=== PATIENT | female | born 1945 | race Caucasian/White ===

== ENCOUNTER 2017-04-08 20:53 | Emergency (ER) | payer MEDICARE | END 2017-04-08 23:15 | disposition left against medical advice (07) | LOC: D.ER 20:53 | DX: M54.6 Pain in thoracic spine (principal) ==

== ENCOUNTER 2017-06-15 09:50 | Emergency (ER) | payer MEDICARE ==
[2017-06-15 11:08] LABS: BASOPHILS 0.6 % (0-2); EOSINOPHILS 3.9 % (0-7); HEMATOCRIT 36.8 % (36.0-48.0); HEMOGLOBIN 12.5 g/dL (12-16); IMMATURE GRANULOCYTES 0.2 % (0-5); LYMPHOCYTES 23.7 % (15-50); MCV 88.2 fL (80.0-100.0); MEAN PLATELET VOLUME 8.4 fL (7.4-10.4); MONOCYTES 8.5 % (2-11); NEUTROPHILS 63.1 % (40-80); PLATELET COUNT 275 10x3/uL (130-400); RBC 4.17 10x6/uL (4.00-5.40); RDW 13.7 % (11.5-14.5); WBC 5.2 10x3/uL (4.8-10.8)
[2017-06-15 11:23] LABS: ALBUMIN 3.6 g/dL (3.4-5.0); ANION GAP 10.7 mmol/L (8-16); BILIRUBIN - TOTAL 0.8 mg/dL (0.2-1.3); CALCIUM 9.3 mg/dL (8.5-10.1); CARBON DIOXIDE 30.1 mmol/L (21.0-32.0); CREATININE - SERUM 1.2 mg/dL (0.6-1.3)
[2017-06-15 11:25] LABS: POTASSIUM - SERUM 2.8 mmol/L (3.5-5.1)
[2017-06-15 12:09] LABS: ERYTHROCYTE SEDIMENTATION RATE 53 mm/hr (0-30)
== END 2017-06-15 13:55 | disposition home or self-care (01) ==
LOC: D.ER 09:50
PROVIDERS: Physician Assistant
DX: R51 Headache (principal); E86.0 Dehydration; E87.6 Hypokalemia

== ENCOUNTER 2017-06-15 14:16 | Emergency (ER) | payer MEDICARE | END 2017-06-15 14:25 | disposition left against medical advice (07) | LOC: D.ER 14:16 | DX: Z02.9 Encounter for administrative examinations, unspecified (principal) ==

== ENCOUNTER → 2017-12-05 12:13 | Outpatient (CLI) | payer OTHER | END | disposition home or self-care (01) | LOC: D.RAD 12:13 | DX: M54.5 Low back pain (principal) ==

== ENCOUNTER → 2017-12-18 12:28 | Outpatient (CLI) | payer OTHER | END | disposition home or self-care (01) | LOC: D.RAD 12:28 | DX: M54.5 Low back pain (principal) ==

== ENCOUNTER → 2018-02-14 15:38 | Outpatient (CLI) | payer OTHER | END | disposition home or self-care (01) | LOC: D.RAD 15:30 | DX: Z09 Encounter for follow-up examination after completed treatment for conditions other than malignant neoplasm (principal) ==

== ENCOUNTER → 2018-02-20 09:51 | Outpatient (CLI) | payer OTHER | END | disposition home or self-care (01) | LOC: D.CT 09:51 | DX: D64.9 Anemia, unspecified (principal); R63.4 Abnormal weight loss ==

== ENCOUNTER → 2018-06-17 15:50 | Outpatient (CLI) | payer OTHER | END | disposition home or self-care (01) | LOC: D.MAMMO 08:15 | DX: Z12.31 Encounter for screening mammogram for malignant neoplasm of breast (principal) ==

== ENCOUNTER 2019-03-04 05:15 | Day surgery (SDC) | payer OTHER ==
[2019-03-03 10:40] LABS: HEMATOCRIT 37.7 % (36.0-48.0); HEMOGLOBIN 12.8 g/dL (12-16); MCH 30.4 pg (26.0-34.0); MCV 89.5 fL (80.0-100.0); MEAN PLATELET VOLUME 8.3 fL (7.4-10.4); RBC 4.21 10x6/uL (4.00-5.40); WBC 4.4 10x3/uL (4.8-10.8)
[~2019-03-04] VITALS: Ht 160 cm; Wt 52.2 kg
--- NOTE | ~2019-03-04 | OP ---
PATIENT NAME: MEREDITH DOZIER MEDICAL RECORD: [id number] :45 LOCATION:D.OPS ADMISSION DATE: SURGEON: LAWSON NESBITT DPM DATE OF OPERATION: 03/04/2019 PREOPERATIVE DIAGNOSES: 1. HAV, left foot. 2. Instability, left first met cuneiform joint. POSTOPERATIVE DIAGNOSES: 1. HAV, left foot. 2. Instability, left first met cuneiform joint. PROCEDURES: 1. Way bunionectomy, left foot. 2. First met cuneiform joint fusion, left foot. ANESTHESIA: Local with general anesthesia. HEMOSTASIS: Left thigh tourniquet at 350 mmHg. PREOPERATIVE DETAILS: The patient was taken to the OR and placed on the operating table in a supine position. This was followed by induction of general anesthesia and infiltration of local anesthetic. Then, 20 cc of 1:1 mix of lidocaine and Marcaine plain were used around the first ray of the left foot. The left extremity was then prepped and draped in the usual aseptic technique followed by exsanguination of extremity and inflation of the tourniquet. PROCEDURE #1: Way bunionectomy, left foot: A 15-blade was used to create an incision from the dorsal aspect of the medial cuneiform distally to the base of the proximal phalanx of the hallux. The incision was deepened down through subcutaneous tissue being sure to avoid all vital structures. Dissection was carried down to the first MPJ where an inverted L capsulotomy was performed. The medial capsular flap was reflected and the head of the first metatarsal was delivered. A sagittal saw was used to reflect the medial eminence. Attention was then directed to the first interspace where a lateral release was performed. Good clinical reduction of lateral contracture was verified. PROCEDURE #2: First met cuneiform joint fusion, left foot. The incision as described above was utilized to dissect down to the first met cuneiform joint. Sagittal saw was used to resect the joint. Temporary fixation was then utilized, noting excellent alignment. A 5-hole plate with one screw crossing the fusion site was then placed on the dorsal aspect of the medial cuneiform and the dorsal aspect of the first metatarsal. Excellent alignment was noted following placement of the plate. C-arm was used to verify good screw placement as well as alignment of the first ray. The wound was flushed. A 2-0 Vicryl was then used to close the deep tissue as well as the first MPJ capsule, 4-0 Rapide was then used to reapproximate the subcutaneous tissue and the skin was then closed with 4-0 Rapide in a subcuticular technique followed by Dermabond. Adaptic, 4 x 4 and Conform were used to dress the wound followed by application of a modified Hart compression dressing. The tourniquet was deflated. POSTOPERATIVE DETAILS: The patient tolerated the procedure well and left the OR with vital signs stable and vascular status at preoperative levels. The patient was transported to recovery per anesthesia in stable condition. OPERATIVE REPORT [id number] MEREDITH DOZIER PAOLO TRANSINT:[id number] Voice Confirmation ID: [id number] DOCUMENT ID: [id number] LAWSON NESBITT DPM CC: [id number] DICTATION DATE: 03/04/19824 BATCH BLENDER: 03/04/19 1103 [facility] [place] 03/04/[address] [address]
[~2019-03-04 05:15] MED LIST: ASPIRIN EC81 M1 PO; OMEPRAZOLE20 M1 PO; ULTRAM50 MG PO; ZANAFLEX4 MG PO
[2019-03-04] MEDS ORDERED: HYDROCODON-ACE1 EA10 PO (05:51)
[2019-03-04 05:57] VITALS: BP 163/87; Ht 160 cm; Wt 52.2 kg
== END 2019-03-04 10:55 | disposition home or self-care (01) ==
LOC: D.OPS 05:15 → D.PAN 07:00 → D.OPS 10:55
PROVIDERS: Anesthesiology; ATTEND Podiatrist
DX: M20.12 Hallux valgus (acquired), left foot (principal); M25.375 Other instability, left foot; Z01.812 Encounter for preprocedural laboratory examination

== ENCOUNTER 2020-06-29 13:12 | Inpatient (IN) | payer OTHER ==
[~2020-06-29] VITALS: Ht 160 cm; Wt 63.5 kg
[~2020-06-29 13:12] MED LIST changes: +HYDROCODON-ACE1 EA10 PO
[2020-06-29 13:54] LABS: BASOPHILS 0.3 % (0-2); HEMATOCRIT 40.7 % (36.0-48.0); HEMOGLOBIN 13.9 g/dL (12-16); IMMATURE GRANULOCYTES 0.3 % (0-5); LYMPHOCYTES 21.7 % (15-50); MCH 29.3 pg (26.0-34.0); MCHC 34.2 g/dL (31.0-37.0); MCV 85.7 fL (80.0-100.0); MEAN PLATELET VOLUME 8.9 fL (7.4-10.4); MONOCYTES 11.4 % (2-11); NEUTROPHILS 65.3 % (40-80); PLATELET COUNT 223 10x3/uL (130-400); RBC 4.75 10x6/uL (4.00-5.40); RDW 13.7 % (11.5-14.5); WBC 3.9 10x3/uL (4.8-10.8)
[2020-06-29 14:22] VITALS: BP 114/63
[2020-06-29 15:23] VITALS: BP 118/76
[2020-06-29 15:28] LABS: ALBUMIN 3.1 g/dL (3.4-5.0); BILIRUBIN - TOTAL 1.43 mg/dL (0.2-1.3); CALCIUM 9.2 mg/dL (8.5-10.1); CARBON DIOXIDE 24.4 mmol/L (21.0-32.0); CREATININE - SERUM 1.2 mg/dL (0.6-1.3); PROTEIN - SERUM 7.3 g/dL (6.4-8.2)
[2020-06-29 15:32] LABS: POTASSIUM - SERUM 2.4 mmol/L (3.5-5.1)
[2020-06-29 16:24] VITALS: BP 115/56
[2020-06-29 17:25] VITALS: BP 108/52
[2020-06-29 18:19] LABS: UDS - AMPHET NEGATIVE QUAL (NEGATIVE); UDS - BARB NEGATIVE QUAL (NEGATIVE); UDS - BENZO NEGATIVE QUAL (NEGATIVE); UDS - COCAINE NEGATIVE QUAL (NEGATIVE); UDS - OPIATE NEGATIVE QUAL (NEGATIVE); UDS - PCP NEGATIVE QUAL (NEGATIVE); UDS - THC NEGATIVE QUAL (NEGATIVE)
[2020-06-29 18:20] LABS: BACTERIA MANY /hpf (NEGATIVE); BILIRUBIN NEGATIVE (NEGATIVE); EPITHELIAL CELLS OCC /hpf (0-5); GLUCOSE NEGATIVE (NEGATIVE); KETONE LARGE mg/dL (NEGATIVE); NITRITE POSITIVE (NEGATIVE); RED CELLS - URINE OCC /hpf (0-5); UROBILINOGEN NORMAL (NORMAL); WHITE CELLS - URINE OCC /hpf (NEGATIVE)
[2020-06-29 18:25] VITALS: BP 139/61
--- NOTE | 2020-06-29 19:10 | NUR ---
REPORT TO JON VIVAR
--- NOTE | 2020-06-29 20:22 | NUR ---
PT GIVEN BLANKET AND HEAD OF BED ADJUSTED TO LEVEL OF COMFORT. DENIES ANY FURTHER NEEDS AT THIS TIME. CALL LIGHT WITHIN REACH WILL CONTINUE TO MONITOR.
--- NOTE | 2020-06-29 21:20 | NUR ---
REPORT CALLED TO TRAMAINE, ROOM DIRTY AT THIS TIME. WILL CALL WHEN CLEAN.
--- NOTE | 2020-06-29 22:00 | NUR ---
RECEIVED PT FROM ER VIA STRETCHER. PT MOVED SELF OVER TO BED. RATES PAIN IN BLE 1 ON PAIN SCALE. ALERT AND ORIENTED X4 BUT CONFUSED. FORGETFUL. RESP EVEN AND NONLABORED. BANDAID NOTED TO LT EYEBROW COVERING SUTURES FROM LACERATION RESULT OF A FALL TODAY. GEN WEAKNESS NOTED. NS @ 100 MLHR INFUSING IN RT FOREARM. BRUISE NOTED TO RT ANKLE. V/S STABLE. CHARISMA ALARM ON FOR PT SAFETY. SR ELEVATED X2. CL IN REACH. NO DISTRESS. UNABLE TO RECALL HOME MEDS.
[2020-06-29 23:06] VITALS: BP 151/82; BMI 24.8
[2020-06-29 23:11] LABS: APTT 29.9 SECONDS (22.8-39.4); INR 1.35 (0.85-1.17); PROTIME 16.6 SECONDS (11.6-15.0)
[2020-06-29 23:31] LABS: CKMB 1.1 U/L (0.0-3.6); CREATINE KINASE 67 UL (21-215); MAGNESIUM - SERUM 1.9 mg/dL (1.8-2.4); TROPONIN-I 0.017 ng/mL (0.000-0.060)
[2020-06-30] VITALS: BP 151/82
--- NOTE | 2020-06-30 02:00 | NUR ---
ASSISTED ONTO BEDPAN. URINE SENT TO LAB FOR CULTURE.
[2020-06-30 04:00] VITALS: BP 108/56
[2020-06-30 05:56] LABS: BASOPHILS 0.3 % (0-2); EOSINOPHILS 1.8 % (0-7); HEMATOCRIT 34.5 % (36.0-48.0); HEMOGLOBIN 11.6 g/dL (12-16); IMMATURE GRANULOCYTES 0.3 % (0-5); MCH 28.9 pg (26.0-34.0); MCHC 33.6 g/dL (31.0-37.0); MCV 85.8 fL (80.0-100.0); MEAN PLATELET VOLUME 8.9 fL (7.4-10.4); MONOCYTES 8.5 % (2-11); NEUTROPHILS 66.1 % (40-80); PLATELET COUNT 226 10x3/uL (130-400); RBC 4.02 10x6/uL (4.00-5.40); RDW 13.8 % (11.5-14.5); WBC 3.9 10x3/uL (4.8-10.8)
[2020-06-30 06:27] LABS: ALBUMIN 2.4 g/dL (3.4-5.0); ALKALINE PHOSPHATASE 58 U/L (30-120); BILIRUBIN - TOTAL 0.95 mg/dL (0.2-1.3); CALCIUM 7.2 mg/dL (8.5-10.1); CARBON DIOXIDE 21.5 mmol/L (21.0-32.0); CHLORIDE - SERUM 99 mmol/L (98-107); CKMB 1.2 U/L (0.0-3.6); CREATINE KINASE 76 UL (21-215); MAGNESIUM - SERUM 1.8 mg/dL (1.8-2.4); SODIUM 137 mmol/L (136-145); eGFR NON AFRICAN AMERICAN 57 mL/min (90-120)
[2020-06-30 06:32] LABS: ALT (SGPT) 16 U/L (10-68); CALC OSMOLALITY 270 mosm/kg (275-300); PROTEIN - SERUM 5.3 g/dL (6.4-8.2); TROPONIN-I < 0.017 ng/mL (0.000-0.060); UREA NITROGEN 10 mg/dL (7-18)
[2020-06-30 06:33] LABS: GLUCOSE 55 mg/dL (74-106); POTASSIUM - SERUM 2.9 mmol/L (3.5-5.1)
[2020-06-30 09:36] VITALS: BP 104/45
[2020-06-30 12:51] VITALS: BP 101/42
[2020-06-30 13:10] LABS: CKMB 1.1 U/L (0.0-3.6); CREATINE KINASE 81 UL (21-215); TROPONIN-I < 0.017 ng/mL (0.000-0.060)
[2020-06-30 13:33] VITALS: Ht 160 cm; Wt 63.5 kg
[2020-06-30 14:22] LABS: CHOL - HDL RATIO 4.5 ratio (2.3-4.1); LDL-HDL RATIO 2.9 ratio (1.5-3.5)
[2020-06-30 16:15] LABS: CKMB 1.3 U/L (0.0-3.6); CREATINE KINASE 90 UL (21-215)
[2020-06-30 16:16] LABS: TROPONIN-I < 0.017 ng/mL (0.000-0.060)
[2020-06-30 17:53] VITALS: BP 134/60
[2020-06-30 20:00] VITALS: BP 119/58
[2020-07-01] VITALS: BP 101/50
[2020-07-01 04:00] VITALS: BP 127/60
[2020-07-01 04:05] LABS: BASOPHILS 0.3 % (0-2); HEMATOCRIT 31.5 % (36.0-48.0); HEMOGLOBIN 10.6 g/dL (12-16); IMMATURE GRANULOCYTES 0.3 % (0-5); MCH 28.2 pg (26.0-34.0); MCHC 33.7 g/dL (31.0-37.0); MEAN PLATELET VOLUME 8.7 fL (7.4-10.4); MONOCYTES 10.4 % (2-11); PLATELET COUNT 202 10x3/uL (130-400); RBC 3.76 10x6/uL (4.00-5.40); RDW 13.7 % (11.5-14.5); WBC 3.6 10x3/uL (4.8-10.8)
--- NOTE | 2020-07-01 04:09 | NUR ---
ASSESSED AT THE BEGINNING OF THE SHIFT. PT IS ALERT AND CONFUSED. WHEN FIRST SEEN SHE HAD PULLED OUT HER IV. IT WAS RESTARTED TO GIVE HER ANTIBOTIC BUT SHORTLY AFTER SHE PULLED IT OUT AGAIN. SHE HAS BEEN IMPOSSIBLE TO KEEP TELEMETRY ON AND IT WAS RETURNED TO MONITORS. IT WAS A PRYOR TO GET ONE EKG DONE. SHE HAS REMAINED ASLEEP SINCE ABOUT MIDNIGHT BUT IS AWAKE NOW GETTING LAB DRAWN.
[2020-07-01 04:14] LABS: MCV 83.8 fL (80.0-100.0)
[2020-07-01 06:07] LABS: ALKALINE PHOSPHATASE 58 U/L (30-120); ALT (SGPT) 13 U/L (10-68); BILIRUBIN - TOTAL 0.68 mg/dL (0.2-1.3); CALCIUM 7.1 mg/dL (8.5-10.1); CARBON DIOXIDE 25.2 mmol/L (21.0-32.0); CHLORIDE - SERUM 101 mmol/L (98-107); CREATINE KINASE 79 UL (21-215); CREATININE - SERUM 1.1 mg/dL (0.6-1.3); MAGNESIUM - SERUM 1.9 mg/dL (1.8-2.4); PROTEIN - SERUM 5.1 g/dL (6.4-8.2); SODIUM 135 mmol/L (136-145); TROPONIN-I < 0.017 ng/mL (0.000-0.060); UREA NITROGEN 8 mg/dL (7-18); eGFR NON AFRICAN AMERICAN 51 mL/min (90-120)
[2020-07-01 07:06] LABS: CALC OSMOLALITY 268 mosm/kg (275-300); GLUCOSE 116 mg/dL (74-106)
[2020-07-01 07:07] LABS: POTASSIUM - SERUM 2.4 mmol/L (3.5-5.1)
--- NOTE | 2020-07-01 07:43 | NUR ---
PT GOT UP AT 0600 AND STARTED TELLING STAFF THAT SHE WAS GOING HOME. WHEN QUESTIONED ABOUT WHERE SHE WAS GOING AND HOW SHE WAS LEAVING WE WERE TOLD IT WAS NONE OF OUR BUSINESS. AFTER CALLING THE RIG SUPERINTENDENT AND TRYING TO REASON WITH HER WE FINALLY LET HER SIGN THE AMA FORM. SHE THEN WALKED OFF. WE WERE TOLD DR WEAVER WAS BRAID MAKER BY THE ANSWERING SERVICE BUT THE MD DID NOT RETURN THE CALL.
== END 2020-07-01 06:45 | disposition left against medical advice (07) | DRG 312 ==
LOC: D.ER 13:12 → D.MS 20:44
PROVIDERS: Family Medicine; ADMIT Family Medicine; ATTEND Family Medicine
PROC: 0HQ1XZZ Repair Face Skin, External Approach (ICD-10-PCS; principal; 2020-06-29)
DX: R55 Syncope and collapse (principal); G93.41 Metabolic encephalopathy; N39.0 Urinary tract infection, site not specified; E87.1 Hypo-osmolality and hyponatremia; S01.112A Laceration without foreign body of left eyelid and periocular area, initial encounter; W19.XXXA Unspecified fall, initial encounter; E87.6 Hypokalemia; E78.5 Hyperlipidemia, unspecified; E03.9 Hypothyroidism, unspecified; K21.9 Gastro-esophageal reflux disease without esophagitis; R63.4 Abnormal weight loss; M48.00 Spinal stenosis, site unspecified; M21.619 Bunion of unspecified foot; M85.80 Other specified disorders of bone density and structure, unspecified site; G89.29 Other chronic pain

== ENCOUNTER 2020-07-05 17:31 | Inpatient (IN) | payer OTHER ==
[~2020-07-05] VITALS: Ht 160 cm; Wt 49.2 kg
[2020-07-05 18:02] LABS: BASOPHILS 0.3 % (0-2); EOSINOPHILS 1.7 % (0-7); HEMATOCRIT 35.7 % (36.0-48.0); HEMOGLOBIN 12.2 g/dL (12-16); IMMATURE GRANULOCYTES 0.3 % (0-5); LYMPHOCYTES 34.5 % (15-50); MCH 29.2 pg (26.0-34.0); MCHC 34.2 g/dL (31.0-37.0); MCV 85.4 fL (80.0-100.0); MEAN PLATELET VOLUME 8.8 fL (7.4-10.4); MONOCYTES 10.4 % (2-11); NEUTROPHILS 52.8 % (40-80); PLATELET COUNT 200 10x3/uL (130-400); RBC 4.18 10x6/uL (4.00-5.40); RDW 14.3 % (11.5-14.5); WBC 3.5 10x3/uL (4.8-10.8)
[2020-07-05 18:13] LABS: APTT 27.5 SECONDS (22.8-39.4); INR 1.17 (0.85-1.17); PROTIME 14.9 SECONDS (11.6-15.0)
[2020-07-05 18:37] LABS: ALBUMIN 2.9 g/dL (3.4-5.0); ALKALINE PHOSPHATASE 71 U/L (30-120); ALT (SGPT) 22 U/L (10-68); BILIRUBIN - TOTAL 1.66 mg/dL (0.2-1.3); CALC OSMOLALITY 276 mosm/kg (275-300); CALCIUM 8.2 mg/dL (8.5-10.1); CARBON DIOXIDE 23.3 mmol/L (21.0-32.0); CHLORIDE - SERUM 101 mmol/L (98-107); CKMB 0.6 U/L (0.0-3.6); CREATINE KINASE 76 UL (21-215); CREATININE - SERUM 1.2 mg/dL (0.6-1.3); GLUCOSE 77 mg/dL (74-106); MAGNESIUM - SERUM 1.5 mg/dL (1.8-2.4); PROTEIN - SERUM 6.1 g/dL (6.4-8.2); SODIUM 140 mmol/L (136-145); THYROID STIMULATING HORMONE 11.44 uIU/mL (0.36-3.74); TROPONIN-I 0.022 ng/mL (0.000-0.060); UREA NITROGEN 9 mg/dL (7-18); eGFR NON AFRICAN AMERICAN 46 mL/min (90-120)
[2020-07-05 18:42] LABS: POTASSIUM - SERUM 2.6 mmol/L (3.5-5.1)
--- NOTE | 2020-07-05 18:43 | NUR ---
CC LAB REC'D KCL 2.6 DR ROSALES NOTIFIED
[2020-07-05 18:44] LABS: BILIRUBIN NEGATIVE (NEGATIVE); KETONE NEGATIVE (NEGATIVE); NITRITE NEGATIVE (NEGATIVE); UROBILINOGEN NORMAL (NORMAL)
[2020-07-05 18:49] LABS: UDS - AMPHET NEGATIVE QUAL (NEGATIVE); UDS - BARB NEGATIVE QUAL (NEGATIVE); UDS - BENZO NEGATIVE QUAL (NEGATIVE); UDS - COCAINE NEGATIVE QUAL (NEGATIVE); UDS - OPIATE NEGATIVE QUAL (NEGATIVE); UDS - PCP NEGATIVE QUAL (NEGATIVE); UDS - THC NEGATIVE QUAL (NEGATIVE)
[2020-07-06 00:32] VITALS: BP 158/82; BMI 17.1
[2020-07-06 00:53] VITALS: BP 158/82
--- NOTE | 2020-07-06 01:29 | NUR ---
NEW ADMIT TO DOCTOR VIDALES FROM [facility] EM[facility]ENCY [facility]PARTMENT RELATED TO ALTERED MENTAL STATUS. PATIENT RECIEVED VIA WHEELCHAIR. ORIENTED TO PERSON AND PLACE ONLY. UNSTEADY. CHARISMA ALARM ON BED. STATES CODE STATUS OF DNR. COOPERATIVE WITH ADMIT ASSESSMENT. RESTING QUIETLY IN BED AT THIS TIME.
[2020-07-06 08:06] LABS: CHOL - HDL RATIO 3.6 ratio (2.3-4.1); LDL-HDL RATIO 2.2 ratio (1.5-3.5)
[2020-07-06 08:36] VITALS: BP 121/55
--- NOTE | 2020-07-06 09:20 | NUR ---
pt laying in bed eating breakfast at this time. pt is alert to self only. pt did know she was in the hospital but did know which one. pt can make some needs known. redirect and reorient as needed. pt was calm and cooperative with staff. pt is awaiting covid results. bed alarm in place and active. no behaviors noted. will cont plan of care.
--- NOTE | 2020-07-06 12:36 | NUR ---
REQUESTED MEDICATION LIST FROM DR. PACKER OFFICE. AWAITING FAX.
[2020-07-06 13:58] VITALS: Ht 160 cm; Wt 49.2 kg
[2020-07-06 20:27] VITALS: BP 125/61
--- NOTE | 2020-07-06 20:30 | NUR ---
RECEIVED PATIENT IN DAYROOM, CONFUSED, LITTLE GUARDED. ASKING FOR HER SHOES, COMPLIANT WITH MEDS. SHE LOOKS AT YOU AND SMILES WHEN YOU ARE TALKING TO HER WITH A SLIGHT BLANK STARE. WILL FOLLOW POC
[2020-07-07 07:15] LABS: RAPID PLASMA REAGIN Non Reactive (Non Reactive)
[2020-07-07 11:19] VITALS: BP 98/49
--- NOTE | 2020-07-07 13:19 | PSY ---
PATIENT NAME:MEREDITH DOZIER MEDICAL RECORD: [id number] : 45 LOCATION:VANDANA Huynh0 ADMISSION DATE: 07/05/20 ACCOUNT: [id number] PSYCHIATRIC EVALUATION DATE OF EVALUATION: 07/06/20 IDENTIFYING DATA: The patient is 75 years old and she is admitted to the hospital on a voluntary basis. CHIEF COMPLAINT: Confusion. HISTORY OF PRESENT ILLNESS: The patient's situation is very sad. She has dementia. Apparently, she has had it for a while, although I do not have details. She is not a very good historian. She called 911 because she could not wake her up. It turns out the check processor says he has been for 4 days. Now, she does not remember that he has . Apparently, she was alone in the house with him for 4 days and he had been decomposing. She is very confused. At this point, we do not have any family or other sources of information, simply a confused woman who is in need of evaluation and assistance. PAST MEDICAL HISTORY: Significant for hypothyroidism. PAST PSYCHIATRIC HISTORY: Denied by the patient. FAMILY HISTORY: Significant for both parents having cancer. ALLERGIES: PENICILLIN. CURRENT MEDICATIONS: Include Zanaflex and aspirin. SOCIAL HISTORY: The patient has no history of drug or alcohol abuse. She is and apparently smoked cigarettes in her youth, but has not for a long time. MENTAL STATUS EXAMINATION: The patient is awake, alert and oriented to person and place, but not to time or situation. Her mood is flat. Her affect is appropriate. Thought processes are goal directed. Memory, concentration, and abstraction abilities are impaired. She denies that she would seek to harm herself or others. She denies psychotic symptoms. ASSESSMENT: AXIS I: Advanced major neurocognitive disorder. AXIS II: None. AXIS III: Hypothyroidism, hyperlipidemia. AXIS IV: Moderate. AXIS V: Global assessment of functioning is 30. PLAN: At this time, the patient is admitted to the hospital for a comprehensive medical, psychological, and social evaluation. She will be treated with both mood stabilizing and memory enhancing medications. Her long-term prognosis is guarded. TRANSINT:[id number] Voice Confirmation ID: [id number] DOCUMENT ID: [id number] SHARRON VIDALES MD at 9802 CC: [id number] DICTATION DATE: 07/06/20 1635 CHILD CARE CENTRE MANAGER: 07/06/20 1707 ADM IN [place] [id number] [place] [address]
--- NOTE | 2020-07-07 13:54 | NUR ---
PT SITTING IN CHAIR. CALM AND COOPERATIVE WITH STAFF. NO ACUTE DISTRESS NOTED. PT IS COMPLIANT WITH MEDS, VITALS AND ASSESSMENTS. CAN MAKE NEEDS KNOWN. CONFUSION NOTED. ALERT TO SELF ONLY. REDIRECT AND REORIENT NEEDED. PT CAN AMBULATE WITH ASSISTANCE. PT SPEAKS WHEN SPOKEN TOO. ENCOURAGE INTERACTION. WILL CONT PLAN OF CARE.
[2020-07-07 20:09] VITALS: BP 133/50
--- NOTE | 2020-07-08 06:47 | NUR ---
PT. RESTED THROUGH THE NIGHT, COMPLIANT WITH MEDS, CONFUSED, NO ISSUES
--- NOTE | 2020-07-08 10:29 | NUR ---
The patient is awake, she has poor insight into her situation, she has poor short term memory recall. She said she is here because her and she has to get back home to clean her house. She says she has things she needs to do. She ambulates independently. She is calm, but she keeps asking "Well, when can I go home." Explained to her "It will be a few days." Provide prescribed meds. The patient is compliant with meds. Continue POC.
--- NOTE | 2020-07-08 12:39 | NUR ---
Ishmael from [facility] called and wondered if the patient is able to sign an authorization for cremation form. Called Josesito and she called Leena at [facility]. Leena from [facility] called and she said "At this time the patient is not a legal guardian and she has not been deemed incompetent, she is her legal person." Spoke to the patient about her spouses and the home will need her to sign a cremation authorization. She said "Yes, my and I discussed cremation so yes, I'll sign it. Called Ishmael from [facility], and let him know she can sign the paperwork. Ishmael also said he will bring another form that lets him know the , parents names etc. Explained to Ishmael that we can try, but I was unsure as to how much information that the patient would be able to provide. He said ok and that he will come by later this afternoon.
--- NOTE | 2020-07-08 12:57 | PN ---
PATIENT:MEREDITH DOZIER [facility] MEDICAL RECORD: [id number] LOCATION:ColinSkinnyMICHAEL Solo112 ADMISSION DATE: 07/05/20 PROGRESS NOTE DATE OF SERVICE: 07/07/2020 SUBJECTIVE: The patient's case was discussed with staff. She has no new complaint. OBJECTIVE: The patient is impaired cognitively, but denying that she would seek to harm herself. ASSESSMENT: Dementia. PLAN: Current medications have been reviewed. She is receiving Megace to assist with her poor appetite. She clearly is going to require significant supervision. TRANSINT:[id number] Voice Confirmation ID: [id number] DOCUMENT ID: [id number] SHARRON VIDALES MD at 1257 CC: [id number] DICTATION DATE: 07/07/20 165 WOODEN SHADE HARDWARE INSTALLER: 07/08/20 0213 ADM IN [place] [id number] [place] [address]
[2020-07-08 13:06] LABS: CALCIUM 8.1 mg/dL (8.5-10.1); CARBON DIOXIDE 21.8 mmol/L (21.0-32.0); CREATININE - SERUM 1.2 mg/dL (0.6-1.3); POTASSIUM - SERUM 3.8 mmol/L (3.5-5.1)
--- NOTE | 2020-07-08 13:56 | NUR ---
Nutrition Follow-up: Overall PO intake is poor. Noted Megace started; first dose given today. Diet: Regular, Ensure TID PO intake: 47% avg x 6 meals Wt: 96# (07/06) Labs noted: Na 135, Glu 118, A1C 5.7, Ca 8.1 Meds noted: Megace, Protonix -Encourage PO intake and honor food preferences. -Monitor wt. -RD following.
--- NOTE | 2020-07-08 14:42 | NUR ---
Ishmael from [facility] came and the patient filled out the cremation form and the certificate.
[2020-07-08 16:17] VITALS: BP 127/39
[2020-07-08 19:57] VITALS: BP 135/56
--- NOTE | 2020-07-08 20:39 | NUR ---
B.) PT IS ALERT AND ORIENTED TO SELF AND SITUATION. SHE IS RECEIVED IN THE DAYROOM. SHE IS OBSERVED SOCIALIZING WITH PEERS. SHE IS CALM AND COOPERATIVE AT THIS TIME. I.) PROVDIED PM MEDICATIONS PRESCRIBED. REDIRECT NEEDED. R.) COMPLIANT WITH ALL MEDICATIONS. EASY TO REDIRECT AT THIS TIME. P.) WILL CONTINUE TO MONITOR.
[2020-07-09 10:10] VITALS: BP 131/77
--- NOTE | 2020-07-09 10:16 | NUR ---
The patient is awake and she is pleasant, she is confused. She has poor short term memory recall. She has poor insight into her situation. She asks where she is and when she gets the answer of [facility] she asks where it is located. She says "Oh, ok." She is interacting with her peers and staff. She ambulates independently. She is not eating well, but she said "I just got my weight to where I want it, my clothes fit better." Provide prescribed meds. The patient is compliant with meds. Continue POC.
[2020-07-09 20:00] VITALS: BP 136/74
--- NOTE | 2020-07-09 20:53 | NUR ---
B.) PT IS ALERT AND ORIENTED TO SELF ONLY. SHE HAS POOR INSIGHT INTO HER SITUATION. SHE RELATES THAT SHE IS IN A HOTEL WITH FRIENDS. SHE IS ABLE TO AMBULATE WITHOUT ASSIST. I.) PROVIDED PM MEDICATIONS PRESCRIBED. REDIRECT NEEDED. R.) COMPLIANT WITH ALL MEDICATIONS. EASY TO REDIRECT. P.) WILL CONTINUE TO MONITOR.
[2020-07-10 09:09] VITALS: BP 139/76
--- NOTE | 2020-07-10 10:46 | NUR ---
RECEIVED IN HALLWAY OUTSIDE OF NURSES STATION. CALM AND COOPERATIVE WITH CARE AND ASSESSMENT. OLINDA SHE IS IN A REHAB C[facility] [place]. NO BEHAVIOR ISSUES. REDIRECT AND REORIENT NEEDED. PARTICIPATING IN GROUP AT THIS TIME. CONTINUE PLAN OF CARE.
--- NOTE | 2020-07-10 19:36 | NUR ---
RECEIVED IN DAYROOM. SITTING IN A CHAIR WITH PEERS AT HER SIDE. CALMA AND COOPERATIVE WITH CARE AND ASSESSMENT, CONFUSED. ENCOURAGE TO EXPRESS NEEDS. REDIRECT AND REOREINT NEEDED. CONTINUES TO SIT CALMLY IN DAYROOM. CONTINUE PLAN OF CARE.
[2020-07-10 20:00] VITALS: BP 134/60
[2020-07-11 08:53] VITALS: BP 103/63
--- NOTE | 2020-07-11 12:00 | NUR ---
RECEIVED IN HALLWAY OUTSIDE OF NURSES STATION. CALM AND COOPERATIVE WITH CARE AND ASSESSMENT. NO BEHAVIORS. REDIRECT AND REORIENT NEEDED. EATING AT THIS TIME. CONTINUE PLAN OF CARE.
--- NOTE | 2020-07-11 19:30 | NUR ---
RECEIVED IN DAYROOM. SITTING IN A CHAIR WITH PEERS AT HER SIDE. CALM AND COOPERATIVE WITH CARE AND ASSESSMENT.CONFUSED. REDIRECT AND REORIENT NEEDED. CONTINUES TO SIT CALMLY IN DAYROOM. CONTINUE PLAN OF CARE.
[2020-07-11 20:06] VITALS: BP 128/62
[2020-07-11 20:12] VITALS: BP 128/62
[2020-07-12 09:31] VITALS: BP 129/62
--- NOTE | 2020-07-12 09:50 | PN ---
PATIENT:MEREDITH DOZIER [facility] MEDICAL RECORD: [id number] LOCATION:VANDANA ShawSkinny112 ADMISSION DATE: 07/05/20 PROGRESS NOTE DATE OF SERVICE: 07/11/2020 SUBJECTIVE: The patient's case was discussed with staff. She has no new complaint. OBJECTIVE: The patient is partially oriented. She is calm and cooperative. She is eating reasonably well and sleeping well. ASSESSMENT: Alzheimer's disease. PLAN: The patient needs 42-evdr-g-day supervision. At this point, it looks as though only adult protective services is going to be able to intervene since she has no close family or relatives that are willing to assist or more fairly able to assist. TRANSINT:[id number] Voice Confirmation ID: [id number] DOCUMENT ID: [id number] SHARRON VIDALES MD at 0950 CC: [id number] DICTATION DATE: 07/11/20 1523 ELECTRICAL HARDWARE ENGINEER: 07/11/20 2228 ADM IN [place] [id number] [place] [id number]
--- NOTE | 2020-07-12 13:31 | NUR ---
RECEIVED IN HALLWAY OUTSIDE OF NURSES STATION. CALM AND COOPERATIVE WITH CARE AND ASSESSMENT. BELIEVES SHE IS IN A FACTORY ON THE [place] OF [facility] AND IS HERE TO GET INSURANCE. REDIRECT AND REORIENT NEEDED. IN GROUP AT THIS TIME. CONTINUE PLAN OF CARE.
--- NOTE | 2020-07-12 17:08 | NUR ---
DR. JADE PRESENT ROUNDING. NEW ORDER FOR DEEP TERMINAL CLEAN AND CONTACT ISOLATION FOR POSSIBLE BED BUGS. HS EVERETTE AND EVS NOTIFIED FOR DEEP TERMINAL CLEANING FOR PTS ROOM. NEW ORDERS NOTED.
[2020-07-12 20:43] VITALS: BP 132/58
--- NOTE | 2020-07-12 20:51 | NUR ---
RECIEVED IN DAYROOM. SITTING IN A CHAIR WITH PEERS AT HER SIDE. CALM AND COOPERATIVE WITH CARE AND ASSESSMENT. ENCOURAGE TO EXPRESS NEEDS. REDIRECT AND REORIENT NEEDED. CONTINUES TO SIT CALMLY IN DAYROOM. CONTINUE PLAN OF CARE.
[2020-07-13 09:10] VITALS: BP 138/79
--- NOTE | 2020-07-13 10:39 | NUR ---
SW MET WITH PT. PT HAS BEEN TEARFUL AND DISCUSSES HER HUSBANDS . SHE STATED SHE NEEDS TO GET BACK TO HER DOGS. SHE STATED SHE HAS A COMMUNITY THAT HELPS HER AND WILL SUPPORT HER IF SHE GOES HOME. PT WAS ORIENTED TO PERSON AND PLACE BUT STILL HAS LIMITED INSIGHT ABOUT SIGNS AND SYMPTOMS. PT CONTINUES TO BE LABILE DURING ASSESSMENT. PT DID STATE SHE THOUGHT SHE WAS IN A FACTORY WORKING DURING ASSESSMENT. TANI WILL CONTINUE TO WORK WITH APS TO FIND LEAST RESTRICTIVE LEVEL OF CARE THAT PROVIDES PT WITH SAFETY.
--- NOTE | 2020-07-13 12:00 | NUR ---
RECEIVED IN HALLWAY OUTSIDE OF NURSES STATION. CALM AND COOPERATIVE WITH CARE AND ASSESSMENT. CONFUSED. NO BEHAVIORS. REDIRECT AND REORIENT NEEDED. EATING AT THIS TIME. CONTINUE PLAN OF CARE.
--- NOTE | 2020-07-13 13:16 | NUR ---
Team Treatment Plan: COMMENTS: Patient has been eatin well for the past 9 meals. No constipation at this time. Patient has gained some weight since last week. DIET: Regluar diet SUPPLEMENT: Ensure with meals PO INTAKE: 82% avg for last 9 meals WEIGHT: 96 lbs on 07/06; 101 lbs on 07/10 BM: x 1 on 07/12 (no consistency noted) SIG LABS: No new labs since 07/08. Na-135(L), Ca-8.1(L) SIG MEDS: MEGACE, senokot, Zocor, Synthroid, Protonix RECOMENDATIONS: -Continue current diet as tolerated -Continue Ensure TID -Continue Appetite Stimulant RD to continue to follow and monitor patient DHS
--- NOTE | 2020-07-13 14:35 | PN ---
PATIENT:MEREDITH DOZIER [facility] MEDICAL RECORD: [id number] LOCATION:ROBERTAWai ColinSkinny112 ADMISSION DATE: 07/05/20 PROGRESS NOTE DATE OF SERVICE: 07/12/2020 SUBJECTIVE: The patient's case was discussed with staff. She has no new complaint. OBJECTIVE: The patient denies that she would seek to harm herself or others. She is partially oriented. Her mood is euthymic. ASSESSMENT: Dementia. PLAN: The patient's current medications have been reviewed. She is tolerating them well. I am going to increase the dose of her Lexapro to 10 mg daily. TRANSINT:[id number] Voice Confirmation ID: [id number] DOCUMENT ID: [id number] SHARRON VIDALES MD at 1435 CC: [id number] DICTATION DATE: 07/12/20 1523 ENGINEERING AND SCIENTIFIC PROGRAMMER: 07/12/20 2344 ADM IN [place] [id number] [place] [address]
[2020-07-13 20:37] VITALS: BP 129/59
--- NOTE | 2020-07-14 00:20 | NUR ---
B) Patient is alert and oriented to self, calm and cooperative, social with peers, I) Administered scheduled medications as ordered, monitored for safety R) Mediation compliant, pleasant and friendly P) Continue plan of care.
--- NOTE | 2020-07-14 07:56 | NUR ---
The patient is awake and alert, she is pleasant. She has poor short term memory recall and she has poor insight into her situation. She is calm. She ambulates, toilets, and feeds herself. Provide prescribed meds. The patient is compliant with meds. Continue POC.
[2020-07-14 09:22] VITALS: BP 127/65
--- NOTE | 2020-07-14 12:16 | PN ---
PATIENT:MEREDITH DOZIER [facility] MEDICAL RECORD: [id number] LOCATION:ColinSkinnyMICHAEL Solo112 ADMISSION DATE: 07/05/20 PROGRESS NOTE DATE OF SERVICE: 07/13/2020 SUBJECTIVE: The patient's case was discussed with staff. She has no new complaint. OBJECTIVE: The patient is not fully oriented. She has limited insight about her situation. She has not been aggressive. ASSESSMENT: Dementia. PLAN: Current medicines have been reviewed and will be maintained. She is going to have her Namenda increased to 10 mg twice daily. TRANSINT:[id number] Voice Confirmation ID: [id number] DOCUMENT ID: [id number] SHARRON VIDALES MD at 1216 CC: [id number] DICTATION DATE: 07/13/20 1459 MILL SET UP: 07/14/20 0008 ADM IN [facility] [address] [place] [address]
--- NOTE | 2020-07-14 17:05 | PN ---
PATIENT:MEREDITH DOZIER MEDICAL RECORD: [id number] LOCATION:VANDANA Solo112 ADMISSION DATE: 07/05/20 PROGRESS NOTE DATE OF SERVICE: 07/14/2020 SUBJECTIVE: The patient's case was discussed with staff. She has no new complaint. OBJECTIVE: The patient is cognitively impaired, but not disruptive. She wants to go home. She has very close neighbors who are willing to look in on her. ASSESSMENT: Dementia. PLAN: The patient is very insistent about this and after discussing it with the treatment team, it has been decided to allow her to try this. I am going to monitor her medications a little longer and would also like to get input from adult protective services. This is a very difficult decision, it is one of those where there really is not 1 clear cut definitive answer. From a purely utilitarian coldly objective standpoint, she should not be at home. But factoring in her autonomy, her wishes, the supportive friends who are to be equivalent of a family for her, I am in favor of letting her try it, even though there are risk. She understands those risks, even though she is demented. TRANSINT:[id number] Voice Confirmation ID: [id number] DOCUMENT ID: [id number] SHARRON VIDALES MD at 1705 CC: [id number] DICTATION DATE: 07/14/20 1228 ORDER PACKER: 07/14/20 1423 ADM IN [facility] [address] [place] [address]
[2020-07-14 20:32] VITALS: BP 131/63
--- NOTE | 2020-07-14 22:43 | NUR ---
RECEIVED PATIENT IN DAYROOM, SHE IS QUIET, CALM, PLEASANT, LITTLE GUARDED. SHE IS STAYING CLOSE TO A MALE RESIDENT AT THIS TIME. SHE HAS A "FIXATED" SMILE. SHE IS COMPLIANT WITH HER MEDS, NO ADVERSE REACTION NOTED TO MEDS, NO SIDE EFFECTS NOTED TO MEDS, SHE IS ABLE TO VOICE ALL NEEDS AND CONCERNS. WILL FOLLOW POC
[2020-07-15 08:52] VITALS: BP 121/65
--- NOTE | 2020-07-15 10:06 | NUR ---
The patient is awake, she is pleasant and has a smile at all times. She has poor short term memory recall and poor insight into her situation. She believes she has known some of the patients for a long time. She ambulates, toilets, and feeds herself independently. Provide prescribed meds, the patient is compliant with meds. Continue POC.
--- NOTE | 2020-07-15 19:25 | NUR ---
RECEIVED PATIENT IN DAYROOM LYING ON COUCH, PLEASANT BUT CONFUSED, SHE IS BEING "TOO CLOSE" WITH OUR MALE PATIENT AT TIMES AND HAS TO BE WATCHED CLOSELY, SHE HAS BEEN COMPLIANT WITH MEDS. CAN MAKE NEEDS KNOWN, WILL FOLLOW POC
[2020-07-15 20:00] VITALS: BP 127/61
[2020-07-16 09:12] VITALS: BP 122/86
--- NOTE | 2020-07-16 12:36 | NUR ---
RECEIVED THIS AM SITTING UP IN CHAIR AT NURSES STATION.PLEASANT.COOPERATIVE WITH STAFF AND MEDS.CONFUSED,HAS POOR SHORT TERM MEMORY.WILL CONTINUE WITH CURRENT PLAN OF CARE,MONIITOR FOR CHANGES AND SAFETY.
--- NOTE | 2020-07-16 19:23 | NUR ---
PATIENT SLID TO FLOOR WHILE WAITING ON VITAL SIGNS. COMPLIANING OF ARM PAIN. CALLED DR. WHEATLEY. ORDER RECEIVED TO X-RAY RIGHT FOREARM AND SHOULDER.
[2020-07-16 19:26] VITALS: BP 126/73
--- NOTE | 2020-07-16 19:53 | NUR ---
PATIENT BLOOD PRESSURE 102/55. METOPROLOL HELD.
--- NOTE | 2020-07-16 22:17 | NUR ---
REVIEWED PATIENT'S X-RAY AND SHE DOES HAVE A FRACTURE TO HER RIGHT UPPER HUMERUS. DR. WHEATLEY AND JAYLEEN NOTIFIED. RECEIVED ORDER FOR NORCO 5MG PO PRN EVERY FOUR HOURS AND ORTHO CONSULT AND TO PLACE ARM IN SLING FOR NOW. PATIENT HAS BEEN GIVEN TYLENOL EXTRA STRENGTH AND IS RESTING AT THIS TIME.
--- NOTE | 2020-07-17 02:07 | NUR ---
PATIENT RESTING AT THIS TIME. HOB ELEVATED FOR COMFORT AND ARM IN SLING. WILL CONTINUE TO MONITOR
[2020-07-17 09:28] VITALS: BP 131/64
--- NOTE | 2020-07-17 12:00 | NUR ---
RECEIVED IN HALLWAY OUTSIDE OF NURSES STATION. CALM AND COOPERATIVE WITH CARE AND ASSESSMENT. COMPLAINS OF PAIN IN RIGHT SHOULDER/ARM. NO BEHAVIORS. REDIRECT AND REORIENT NEEDED. EATING AT THIS TIME. CONTINUE PLAN OF CARE.
[2020-07-17 18:51] VITALS: BP 167/79
--- NOTE | 2020-07-17 19:10 | NUR ---
RECEIVED IN BEDROOM. RESTING IN BED WITH EYES CLOSED. RESPONDS TO VOICE. CALM AND COOPERATIVE WITH CARE AND ASSESSMENT. ENCOURAGE TO EXPRESS NEEDS. REDIRECT AND REOREINT NEEDED. CONTINUES TO REST QUIETLY IN BED. CONTINUE PLAN OF CARE.
[2020-07-18 08:34] VITALS: BP 137/65
[2020-07-18] MEDS ORDERED: Megace ES [CHEMO] PO (09:53)
[2020-07-18] MEDS ORDERED: LIDODERM 5 %1 PATCH TRANSDERM (09:53)
[2020-07-18] MEDS ORDERED: ZOCOR20 MG PO (09:53)
[2020-07-18] MEDS ORDERED: LEXAPRO10 MG PO (09:53)
[2020-07-18] MEDS ORDERED: LEVOTHYROXINE75 MCG PO (09:53)
[2020-07-18] MEDS ORDERED: NAMENDA5 MG PO (09:53)
[2020-07-18] MEDS ORDERED: Senokot TAB PO (09:53)
[2020-07-18] MEDS ORDERED: PROTONIX40 MG PO (09:53)
[2020-07-18] MEDS ORDERED: BUSPAR5 MG PO (09:53)
--- NOTE | 2020-07-18 13:41 | PN ---
PATIENT:MEREDITH DOZIER MEDICAL RECORD: [id number] LOCATION:[facility] ADMISSION DATE: 07/05/20 PROGRESS NOTE DATE OF SERVICE: 07/18/2020 SUBJECTIVE: The patient's case was discussed with staff. She has no new complaint. OBJECTIVE: The patient is having some complications related to the injury to her shoulder from Saturday night. Chief among these is an unusual amount of pain. The specialist involved is wanting to transfer her from the behavioral floor to the medical floor for management. ASSESSMENT: Dementia. PLAN: The patient has no symptoms that should represent a danger to herself or the others on the medical floor. She is not aggressive. She is not psychotic. Once management on the medical floor is complete, we would be happy to assist with either replacement or can certainly take her back on the behavioral unit if there are issues that need to be addressed. At this point, prior to the fall that she experienced over the weekend, she was clinically ready for discharge. The treatment team was focusing on the least restrictive environment that could meet her needs. TRANSINT:[id number] Voice Confirmation ID: [id number] DOCUMENT ID: [id number] SHARRON VIDALES MD at 1341 CC: [id number] DICTATION DATE: 07/18/20 0956 TALENT ACQUISITION OPERATIONS MANAGER: 07/18/20 1042 ADM IN [address] [id number] [place] [address]
--- NOTE | 2020-07-18 15:00 | NUR ---
RECEIVED IN HALLWAY OUTSIDE OF NURSES STATION. CALM AND COOPERATIVE WITH CARE AND ASSESSMENT. NO BEHAVIORS NOTED. REDIRECT AND REORIENT NEEDED. SITTING IN GROUP AT THIS TIME. CONTINUE PLAN OF CARE.
--- NOTE | 2020-07-18 19:30 | NUR ---
RECEIVED IN DAYROOM. SITTING IN A WHEELCHAIR. CALM AND COOPERATIVE WITH CARE AND ASSESSMENT. ENCOURAGE TO EXPRESS NEEDS. CONTINUES TO SIT QUIETLY IN DAYROOM. CONTINUE PLAN OF CARE.
[2020-07-18 19:39] VITALS: BP 171/68
[2020-07-19 09:30] VITALS: BP 146/75
--- NOTE | 2020-07-19 12:00 | NUR ---
RECEIVED IN HALLWAY OUTSIDE OF NURSES STATION. CALM AND COOPERATIVE WITH CARE AND ASSESSMENT. QUIET AND STAYS TO HERSELF. NO BEHAVIOR ISSUES. REDIRECT AND REORIENT NEEDED. EATING AT THIS TIME. CONTINUE PLAN OF CARE.
--- NOTE | 2020-07-19 16:49 | NUR ---
REPORT CALLED TO SU WEBB. ALL PAPERWORK SENT WITH PT AT TIME OF DISCHARGE.
--- NOTE | 2020-07-19 17:03 | NUR ---
PT DISCHARGED TO [facility]. ALL DISCHARGE PAPERWORK AND BELONGING GIVING TO CHARGE NURSE SU WEBB. NO S/SX OF DISTRESS NOTED.
--- NOTE | 2020-07-20 08:33 | PN ---
PATIENT:MEREDITH DOZIER PAOLO MEDICAL RECORD: [id number] LOCATION:[facility] ADMISSION DATE: 07/05/20 PROGRESS NOTE DATE OF SERVICE: 07/19/2020 SUBJECTIVE: The patient's case was discussed with staff. She has no new complaint. OBJECTIVE: The patient is still having a lot of discomfort with her shoulder. Cognitively, she is not any different. Behaviorally, she is not a direct risk. ASSESSMENT: Dementia. PLAN: The patient is going to be transferred to orthopedic surgery for a reduction of the fracture. I do not see evidence of acute dangerousness and if behaviors present, I would be happy to accept her back on the behavioral unit for additional treatment. TRANSINT:[id number] Voice Confirmation ID: [id number] DOCUMENT ID: [id number] SHARRON VIDALES MD at 0833 CC: [id number] DICTATION DATE: 07/19/20 1448 CIGAR HEAD HOLER: 07/20/20 0044 DIS IN 07/19/20 [address] [place] [address]
== END 2020-07-19 17:05 | disposition short-term general hospital (02) | DRG 884 ==
LOC: D.ER 17:31 → D.PSYCH 19:57
PROVIDERS: Family Medicine; ADMIT Psychiatry & Neurology Psychiatry; ATTEND Psychiatry & Neurology Psychiatry
DX: F03.91 Unspecified dementia, unspecified severity, with behavioral disturbance (principal); S42.211A Unspecified displaced fracture of surgical neck of right humerus, initial encounter for closed fracture; I10 Essential (primary) hypertension; E03.9 Hypothyroidism, unspecified; E78.5 Hyperlipidemia, unspecified; K21.9 Gastro-esophageal reflux disease without esophagitis; W19.XXXD Unspecified fall, subsequent encounter; Y92.009 Unspecified place in unspecified non-institutional (private) residence as the place of occurrence of the external cause; K59.00 Constipation, unspecified; M54.5 Low back pain; Y92.239 Unspecified place in hospital as the place of occurrence of the external cause; W18.30XA Fall on same level, unspecified, initial encounter